=== PATIENT | female | born 1960 | race Caucasian/White ===

== ENCOUNTER 2016-12-07 07:01 | Inpatient (IN) | payer BC ==
[~2016-12-07] VITALS: Ht 160 cm; Wt 64.7 kg
[2016-12-07 07:50] LABS: HEMATOCRIT 42.1 % (36.0-46.0); MCH 31.3 PG (29.0-34.0); MCHC 34.4 G/DL (30.0-36.0); MCV 90.9 FL (83-99); MEAN PLAT.VOLUME 9.8 uM^3 (9.5-12.4); PLATELET COUNT 146 K/uL (156-360); RBC DIS.WIDTH-CV 12.9 % (11.8-14.6); RBC DIS.WIDTH-SD 41.9 % (39-53); RED BLOOD COUNT 4.63 M/uL (3.80-5.20); WHITE BLOOD COUNT 6.1 K/uL (4.1-10.2)
[2016-12-07 07:58] LABS: CHLORIDE 106 mEq/L (99-109); POTASSIUM 3.9 mEq/L (3.7-5.4); SODIUM 140 mEq/L (136-147)
[2016-12-07 08:00] LABS: GLUCOSE 254 mg/dL (70-99)
[2016-12-07 08:01] LABS: ANION GAP 14 MEQ/L (2-14)
[2016-12-07 08:03] LABS: GFR ESTIMATE (CALCULATED) > 59 mL/min/
[2016-12-07 08:04] LABS: UREA NITROGEN (BUN) 11 mg/dL (9-23)
[2016-12-07 08:11] LABS: TROP-I INTERPRETATION NEGATIVE; TROPONIN-I < 0.01 ng/mL (0.0-0.30)
[2016-12-07] MEDS ORDERED: LISINOPRIL2.5 MG PO (08:36)
[2016-12-07] MEDS ORDERED: ATORVASTATIN CA20 MG PO (08:36)
[2016-12-07] MEDS ORDERED: LOPRESSOR50 MG PO (08:37)
[2016-12-07] MEDS ORDERED: LO-DOSE ASPIRIN81 M2 PO (08:38)
[2016-12-07] MEDS ORDERED: METFORMIN HCL1000 MG PO (08:38)
[2016-12-07] MEDS ORDERED: JANUVIA100 MG PO (08:39)
[2016-12-07] MEDS ORDERED: NITROSTAT0.4 MG SL (08:40)
[2016-12-07] MEDS ORDERED: PROTONIX40 MG PO (08:40)
[2016-12-07 09:38] LABS: D-DIMER ELISA 0.61 mg/L FEU (< 0.57)
[2016-12-07 12:05] VITALS: BP 128/63
[2016-12-07 15:14] LABS: TROP-I INTERPRETATION NEGATIVE; TROPONIN-I < 0.01 ng/mL (0.0-0.30)
[2016-12-07 16:03] VITALS: BP 131/87
[2016-12-07 16:04] VITALS: BP 141/87
[2016-12-07 17:21] LABS: POINT-OF-CARE METER ID UU14162513
[2016-12-07 19:59] LABS: TROP-I INTERPRETATION NEGATIVE; TROPONIN-I < 0.01 ng/mL (0.0-0.30)
[2016-12-07 20:02] VITALS: BP 111/58
[2016-12-07 21:45] LABS: POINT-OF-CARE METER ID UU14162513
[2016-12-08 00:35] VITALS: BP 148/65
[2016-12-08 01:35] VITALS: BP 125/63
[2016-12-08 04:07] VITALS: BP 110/54
[2016-12-08 07:30] VITALS: BP 117/65
[2016-12-08 09:34] LABS: ALKALINE PHOSPHATASE 111 IU/L (3-129); ANION GAP 7 MEQ/L (2-14); CHLORIDE 110 MEQ/L (99-109); GFR ESTIMATE (CALCULATED) > 59 mL/min/; GLUCOSE 159 mg/dL (70-99); SAMPLE HEMOLYSIS CHECK 0; SAMPLE ICTERIC CHECK 0; SAMPLE LIPEMIA CHECK 0; SODIUM 143 MEQ/L (136-147); TOTAL BILIRUBIN 0.7 MG/DL (0.0-1.0); UREA NITROGEN (BUN) 10 mg/dL (9-23)
[2016-12-08 09:44] LABS: HEMATOCRIT 39.6 % (36.0-46.0); IMMATURE GRANULOCYTE (%) 1.3 % (0.0-0.7); IMMATURE GRANULOCYTE COUNT 0.1 K/uL; LYMPHOCYTE COUNT 1.3 K/uL (1.0-2.8); MCH 31.7 PG (29.0-34.0); MCHC 33.6 G/DL (30.0-36.0); MCV 94.5 FL (83-99); MEAN PLAT.VOLUME 10.5 uM^3 (9.5-12.4); MONOCYTE (%) 4.8 % (3-12); MONOCYTE COUNT 0.2 K/uL (0-0.8); NEUTROPHIL (%) 59.8 % (45-76); NEUTROPHIL COUNT 2.4 K/uL (1.8-6.4); PLATELET COUNT 143 K/uL (156-360); RBC DIS.WIDTH-CV 13.4 % (11.8-14.6); RED BLOOD COUNT 4.19 M/uL (3.80-5.20)
== END 2016-12-08 11:43 | disposition home or self-care (01) | DRG 392 ==
LOC: EME 07:01 → EDOF 08:45 → 5WEST 10:20 → 5SOUTH 12-08 01:10
PROVIDERS: Emergency Medicine; Hospitalist; Internal Medicine
DX: R10.13 Epigastric pain (principal); R07.9 Chest pain, unspecified; I25.10 Atherosclerotic heart disease of native coronary artery without angina pectoris; E11.65 Type 2 diabetes mellitus with hyperglycemia; I10 Essential (primary) hypertension; E78.5 Hyperlipidemia, unspecified; R91.8 Other nonspecific abnormal finding of lung field; Z95.5 Presence of coronary angioplasty implant and graft; F17.210 Nicotine dependence, cigarettes, uncomplicated; Z86.711 Personal history of pulmonary embolism; Z88.1 Allergy status to other antibiotic agents; Z79.84 Long term (current) use of oral hypoglycemic drugs; I25.2 Old myocardial infarction
CPT/HCPCS: 71020; 71275; 76705; 80048; 80053; 82948; 83880; 84484; 85025; 85027; 85379; 87177; 87506; 93005; 99202; J1650; J1815; J2270; J2405; J7030